=== PATIENT | male | born 1980 | race Caucasian/White ===

== ENCOUNTER 2020-12-07 08:38 | Outpatient (REF) | payer BC, SELFPAY ==
--- NOTE | ~2020-12-07 | XR_ITS ---
EXAMINATION: AP BILATERAL KNEE AND LEFT KNEE. CLINICAL INFORMATION: Pain left knee COMPARISON: None TECHNIQUE: AP bilateral knees standing. Left knee 1 view FINDINGS: AP bilateral knee: The medial and lateral compartment joint space both kidneys is normal. No bony erosive changes or soft tissue swelling seen. Left knee: A single lateral view left knee reveals normal patellofemoral joint compartment joint space. No loose bodies, fracture or suprapatellar joint effusion seen. XR/XR knee standing BI IMPRESSION: Unremarkable AP bilateral knee and left knee exam.
--- NOTE | ~2020-12-07 | XR_ITS ---
EXAMINATION: AP BILATERAL KNEE AND LEFT KNEE. CLINICAL INFORMATION: Pain left knee COMPARISON: None TECHNIQUE: AP bilateral knees standing. Left knee 1 view FINDINGS: AP bilateral knee: The medial and lateral compartment joint space both kidneys is normal. No bony erosive changes or soft tissue swelling seen. Left knee: A single lateral view left knee reveals normal patellofemoral joint compartment joint space. No loose bodies, fracture or suprapatellar joint effusion seen. XR/XR knee LT 3V IMPRESSION: Unremarkable AP bilateral knee and left knee exam.
== END 2020-12-07 08:39 | disposition home or self-care (01) ==
LOC: HO.XRAY 08:38
PROVIDERS: PCP Neuromusculoskeletal Medicine, Sports Medicine; Visit Provider Physician Assistant
DX: S83.242A Other tear of medial meniscus, current injury, left knee, initial encounter (principal); M25.561 Pain in right knee
CPT/HCPCS: 73562; 73564; 73565

== ENCOUNTER 2020-12-19 06:02 | Day surgery (SDC) | payer BC, SELFPAY ==
[2020-12-12 17:58] VITALS: BMI 32.7
--- NOTE | 2020-12-17 12:22 | P.CONAN_ITS ---
Documented by User: Maame Webber 12/17/20 12:22 HPI - Anesthesia Eval Consult details Narrative: 40yo M for Left Knee Arthroscopy [facility] Past Medical History Medical History Acid reflux Arthritis Back pain Surgical History Surgical History History of colonoscopy Social History Social History Alcohol intake: current Alcohol intake frequency: holidays/special occasions only Patient Tobacco Use Status: Former Tobacco user Quit Date: 2017 Use of substances other than those prescribed or required for medical reasons: No Are you DNR?: No Advance Directives: No Advance Directives Information Provided: No Advance Directives on File: No Current occupational status: employed Current occupation: right handed Meds Allergies Allergy/AdvReac Type Severity Reaction Status Date / Time bee venom protein (honey bee) Allergy Severe Anaphylaxis Verified 12/19/20 06:11 Home Medications Medication Instructions Recorded Confirmed Last Taken Type omeprazole 20 mg capsule,delayed 20 mg PO DAILY 12/07/20 12/12/20 12/19/20 05:00 History release epinephrine [Epi E-Z Pen] 0.3 mg IM Q10M PRN 12/12/20 12/12/20 Unknown History ibuprofen 600 mg PO DAILY 12/12/20 12/12/20 12/12/20 09:00 History Exam Exam Date and Time: December 17, 2020 1222 Height,Weight and Vital Signs: Height 6 ft 2 in Weight 115.666 kg Assessment and Plan Assessment Anesthesia Assessment: Chart Reviewed Documented by User: Zeenat Casper 12/19/20 07:05 [facility] Past Medical History Medical History Acid reflux Arthritis Back pain Surgical History Surgical History History of colonoscopy Social History Social History Alcohol intake: current Alcohol intake frequency: holidays/special occasions only Patient Tobacco Use Status: Former Tobacco user Quit Date: 2017 Use of substances other than those prescribed or required for medical reasons: No Are you DNR?: No Advance Directives: No Advance Directives Information Provided: No Advance Directives on File: No Current occupational status: employed Current occupation: right handed Meds Allergies Allergy/AdvReac Type Severity Reaction Status Date / Time bee venom protein (honey bee) Allergy Severe Anaphylaxis Verified 12/19/20 06:11 Home Medications Medication Instructions Recorded Confirmed Last Taken Type omeprazole 20 mg capsule,delayed 20 mg PO DAILY 12/07/20 12/12/20 12/19/20 05:00 History release epinephrine [Epi E-Z Pen] 0.3 mg IM Q10M PRN 12/12/20 12/12/20 Unknown History ibuprofen 600 mg PO DAILY 12/12/20 12/12/20 12/12/20 09:00 History Exam Airway Mallampati Class: II TM Dist: >3cm Assessment and Plan Assessment Anesthesia Assessment: Anesthesia Plan Discussed and Chart Reviewed Final Anesthetic Review NPO: Yes ASA Class: II Final Preanesthetic Review: No Changes in Pt Med Stat, Meds/Allgs Chart Reviewed, Consent Obtained/Reviewed and Anes Risks/Benef Reviewed Patient Risk: Low Procedure Risk: Low Assessment/Block/Sedation in SS: Assess/Block/Sedation-SS Anesthetic Plan Anesthetic Plan: GA Disposition: Standard PACU
[2020-12-19 06:14] VITALS: BP 134/85; PULSE 83; RESP 16; TEMP 36.8; O2SAT 94
[2020-12-19] MEDS: Lactated Ringers 1,000 ML 100 ML IVCONT (06:49)
--- NOTE | 2020-12-19 07:41 | MHC.SHP ---
Pre-Procedural Eval Section A The patient is an INPATIENT: No Changes since office visit: Yes Patient answered all questions; No Cold of Flu in the past 2 weeks, No New Medical Problems and No Changes in Medication The History & Physical has been completed within 30 days and I have reviewed it.: Yes Section B Chief Complaint: meniscus tear Allergies: Allergies Allergy/AdvReac Type Severity Reaction Status Date / Time bee venom protein (honey bee) Allergy Severe Anaphylaxis Verified 12/19/20 06:11 Plan I have reviewed the history and physical and performed a pertinent physical examination on my patient. No changes have occurred unless specified.
--- NOTE | 2020-12-19 08:03 | PM.OP ---
Brief Operative Note Date of Service: 12/19/20 Pre-op diagnosis: left knee medial meniscus tear Post-op diagnosis: same Procedure: partial medial meniscectomy left knee Implants: none Surgeon: John Rene MD Anesthesia: GETA Was an Musculoskeletal Physiotherapist used for this Procedure?: No Estimated blood loss (mL): 5 IV fluids (mL): 600 Pathology: none sent Condition: stable Disposition: PACU
[2020-12-19 08:10] VITALS: BP 155/95; PULSE 91; RESP 16; TEMP 36.4; O2SAT 97
[2020-12-19 08:15] VITALS: BP 134/90; PULSE 87; RESP 18; O2SAT 96
[2020-12-19 08:20] VITALS: BP 150/103; PULSE 79; RESP 18; O2SAT 96
[2020-12-19 08:24] VITALS: BP 151/94; PULSE 82; RESP 18; O2SAT 96
[2020-12-19 08:40] VITALS: BP 127/78; PULSE 78; RESP 18; O2SAT 97
--- NOTE | 2020-12-20 12:21 | W.PM.OPN ---
Operative Note Operative Note Date of Service: 12/19/20 Narrative: Pre-op diagnosis: left knee medial meniscus tear Post-op diagnosis: same Procedure: partial medial meniscectomy left knee Implants: none Surgeon: John Rene MD Anesthesia: GETA Was an Front Loader Residential Driver used for this Procedure?: No Estimated blood loss (mL): 5 IV fluids (mL): 600 Pathology: none sent Condition: stable Disposition: PACU Procedure in detail Patient was brought to the operating room placed supine on the arthroscopic table and prepped and draped in standard sterile fashion. A time-out was called to identify proper site proper procedure proper surgeon and IV antibiotics per weight were administered. I began by exsanguinating the limb and insufflating tourniquet to 300 mm Hg. Then made a standard anterolateral stab incision. The knee was insufflated with water and 30 degree arthroscope was placed. There was grade 1 fibrillations of the patella but overall suprapatellar pouch was plane and the gutters were clean. I descended into the medial compartment where I made my medial portal under direct visualization. There was obvious of complex tear of the body and posterior horn of the medial meniscus. Root was intact and there were no cartilage changes throughout the medial compartment. I used a combination of biter shaver and cautery to remove unstable portions of the meniscus. Approximally 40% meniscal volume was removed. Once I was satisfied with this the ACL was examined and found to be intact and the lateral compartment also was pristine. I then removed all instrumentation and closed the portals with skin glue. 25 mL of 2% Marcaine with epinephrine was injected into the joint and the surrounding soft tissues. Patient was then placed in sterile dressing extubated brought recovery room stable condition. There were no known complications.
== END 2020-12-19 09:07 | disposition home or self-care (01) ==
PROVIDERS: PCP Neuromusculoskeletal Medicine, Sports Medicine; Visit Provider Orthopaedic Surgery
PROC: (CPT 29870; principal; 2020-12-19 07:30)
DX: S83.232A Complex tear of medial meniscus, current injury, left knee, initial encounter (principal); X50.1XXA Overexertion from prolonged static or awkward postures, initial encounter; Y93.H2 Activity, gardening and landscaping; Y92.9 Unspecified place or not applicable; Y99.9 Unspecified external cause status
CPT/HCPCS: 29881; J0171; J0690; J1100; J2250; J2405; J3010

== ENCOUNTER → 2020-12-31 09:26 | Outpatient (BNVA) | payer BC, SELFPAY | PROVIDERS: Visit Provider Orthopaedic Surgery ==

== ENCOUNTER 2022-05-26 10:49 | Outpatient (REF) | payer BC, SELFPAY ==
--- NOTE | ~2022-05-26 | XR_ITS ---
EXAMINATION: KNEE X-RAY CLINICAL INFORMATION: Pain COMPARISON: Previous x-ray 2020 TECHNIQUE: Standing AP view of both knees and lateral and sunrise view of the left knee FINDINGS: Bone alignment is normal. No fracture or dislocation. Joint spaces are normal. There is no joint effusion. XR/XR knee LT 2V IMPRESSION: Unremarkable exam.
--- NOTE | ~2022-05-26 | XR_ITS ---
EXAMINATION: KNEE X-RAY CLINICAL INFORMATION: Pain COMPARISON: Previous x-ray 2020 TECHNIQUE: Standing AP view of both knees and lateral and sunrise view of the left knee FINDINGS: Bone alignment is normal. No fracture or dislocation. Joint spaces are normal. There is no joint effusion. XR/XR knee standing BI IMPRESSION: Unremarkable exam.
== END 2022-05-26 10:50 | disposition home or self-care (01) ==
LOC: HO.HOSX 10:49
PROVIDERS: Visit Provider Orthopaedic Surgery
DX: M25.562 Pain in left knee (principal)
CPT/HCPCS: 73560; 73565

== ENCOUNTER 2022-06-13 18:37 | Outpatient (REF) | payer BC, SELFPAY ==
--- NOTE | ~2022-06-13 | MR_ITS ---
EXAMINATION: MR KNEE WITHOUT CONTRAST, LEFT CLINICAL INFORMATION: Left knee pain. History of meniscal surgery. COMPARISON: Radiographs 05/26/2022. MRI 11/28/2020. TECHNIQUE: MRI of the knee without contrast was performed using routine sequences on a high-field scanner. FINDINGS: MENISCI: Medial Meniscus: Minimal intermediate signal along the undersurface of the posterior horn likely represents the postsurgical result with no definite recurrent tear. Lateral Meniscus: Intact LIGAMENTS: Cruciate: Intact Collateral: Intact EXTENSOR MECHANISM: Intact ARTICULAR CARTILAGE/BONE: Patellofemoral Compartment: Articular cartilage fissuring and mild surface irregularity of the central patella and mild T2 signal hyperintensity of the medial facet is similar to the previous study. Medial Compartment: Normal Lateral Compartment: Normal JOINT FLUID AND BURSAE: Trace joint effusion. MR/MR knee LT wo con IMPRESSION: 1. Postsurgical changes of the medial meniscus with no definite recurrent tear. 2. Mild patellofemoral compartment osteoarthritis with a trace joint effusion. This does not appear significantly changed.
== END 2022-06-13 18:38 | disposition home or self-care (01) ==
LOC: HO.MRI 18:37
PROVIDERS: Visit Provider Orthopaedic Surgery
DX: M23.92 Unspecified internal derangement of left knee (principal); Z98.890 Other specified postprocedural states
CPT/HCPCS: 73721

== ENCOUNTER → 2022-07-04 11:21 | Outpatient (BNVA) | payer BC, SELFPAY | PROVIDERS: PCP Neuromusculoskeletal Medicine, Sports Medicine; Visit Provider Orthopaedic Surgery | DX: M17.10 Unilateral primary osteoarthritis, unspecified knee (principal) ==